=== PATIENT | female | born 1980 | race Hispanic/Latino ===

== ENCOUNTER 2021-02-14 12:25 | Emergency (ER) | payer BC, SELFPAY ==
[2021-02-14 12:44] VITALS: BP 114/66; PULSE 97; RESP 20; TEMP 37.9; O2SAT 97
--- NOTE | 2021-02-14 13:31 | ED.GENADULT ---
HPI - General Adult General Chief complaint: Upper Respiratory Infection Stated complaint: chills/fever/back pain Source: patient Mode of arrival: ambulatory Limitations: no limitations History of Present Illness HPI narrative: 41 y/o male. PMHx: None reported. Presents to [facility] today with acute complaints of body aches, chills, [place]DWELL, & sinus congestion for the past 3-5 days. He reports fever at home. No sore throat, chest pain, cough, dyspnea. No GI disruption or N/V. He tells me that his and children have most recently been Dx w/ Covid 19 virus. Pt is without additional acute c/o illness upon exam. Related Data Allergies Allergy/AdvReac Type Severity Reaction Status Date / Time No Known Allergies Allergy Verified 02/14/21 13:04 Review of Systems Review of Systems: CONSTITUTIONAL: Positive fever, chills, sweats. Body aches. EYES: Denies visual changes, redness, discharge. ENT: Positive congestion. No sore throat, otalgia. CARDIOVASCULAR: Denies chest pain, palpitations, edema. RESPIRATORY: Denies dyspnea, wheezing, cough GASTROINTESTINAL: Denies abdominal pain, nausea, vomiting, diarrhea. GENITOURINARY: Denies dysuria, hematuria, abnormal discharge SKIN: Denies rash or itching. MUSCULOSKELETAL: Denies acute back pain, joint pain, or myalgia. NEUROLOGIC: Denies numbness, or focal weakness. PSYCHIATRIC: Denies anxiety or depression. All systems reviewed & are unremarkable except as noted in HPI and below PMFSH Social History Social History Gender identity (if verbalized by the patient): Male Exam Narrative: GENERAL: This is a well-nourished, well-developed adult, in no apparent distress. HEAD: normocephalic, atraumatic. EYES: PERRL. Sclera clear/white. EARS: External ears normal, auditory canals clear and without drainage, TMs normal. NOSE: Positive Rhinorrhea, congested, no obstruction. THROAT: Mucous membranes moist, posterior pharynx erythematous, no exudative changes. PND. NECK: Neck supple, non-tender without lymphadenopathy, masses or thyromegaly. CARDIOVASCULAR: Regular rate and rhythm without murmurs, gallops, or rubs. RESPIRATORY: Clear to auscultation. Breath sounds equal bilaterally. No wheezes, rales, or rhonchi. GASTROINTESTINAL: Abdomen soft, non-tender, nondistended. Bowel sounds are active. No guarding. SKIN: warm, intact with no suspicious lesions or rash, good texture and turgor. NEURO: No focal neurologic deficits. EXTREMITIES: Negative. Course Course Emergency Course: -41 y/o male. PMHx negative. -Exposure to recent Covid viral illness, and with onset of viral type manifestations. -Proceed with Covid 19 rapid testing. Vital Signs Vital signs: Vital Signs Temperature 37.9 C H 02/14/21 12:44 Pulse Rate 97 02/14/21 12:44 Respiratory Rate 20 02/14/21 12:44 Blood Pressure 114/66 02/14/21 12:44 Pulse Oximetry 97 02/14/21 12:44 Temperature 37.9 C H 02/14/21 12:44 Pulse Rate 97 02/14/21 12:44 Respiratory Rate 20 02/14/21 12:44 Blood Pressure 114/66 02/14/21 12:44 Pulse Oximetry 97 02/14/21 12:44 Medical Decision Making MDM Narrative Medical decision making narrative: -Rapid Covid 19 POSITIVE. -He arrives febrile, however non-tachycardic and normotensive. He does not appear critically ill. -Resume home Viral remedies prn for symptomatic relief. -Resume all self isolation and Quarantine as directed per CDC & [facility] Guidelines. -ER with emergent health status changes. Patient agrees. Differential Diagnosis Differential Diagnosis: Differential Diagnosis: Consideration of the following conditions may be warranted for the presenting problem, they are not final diagnoses: upper respiratory infection, otitis media, sinusitis, RSV viral infection, bronchitis, pharyngitis, Streptococcal sore throat, COVID-19, and other. Medical Records Medical records reviewed: Yes I revi
== END 2021-02-14 13:28 | disposition home or self-care (01) ==
PROVIDERS: Emergency Provider Nurse Practitioner Adult Health
DX: U07.1 COVID-19 (principal)
CPT/HCPCS: 87426; 99203; C9803; G0463